=== PATIENT | male | born 1995 | race Caucasian/White ===

== ENCOUNTER 2017-02-25 14:54 | Emergency (ER) | payer OTHER | END 2017-02-25 16:25 | disposition home or self-care (01) | LOC: NAV ERS 14:54 | DX: K64.4 Residual hemorrhoidal skin tags (principal); B37.2 Candidiasis of skin and nail; J45.909 Unspecified asthma, uncomplicated; F32.9 Major depressive disorder, single episode, unspecified; F17.210 Nicotine dependence, cigarettes, uncomplicated | CPT/HCPCS: 82274; 99284 ==

== ENCOUNTER 2017-04-29 16:26 | Emergency (ER) | payer OTHER ==
[2017-04-29] MEDS ORDERED: Acetaminophen 500 MG TAB ONE (16:36)
== END 2017-04-29 16:55 | disposition home or self-care (01) ==
LOC: NAV ERS 16:26
DX: J11.1 Influenza due to unidentified influenza virus with other respiratory manifestations (principal); J45.909 Unspecified asthma, uncomplicated; F32.9 Major depressive disorder, single episode, unspecified; F17.210 Nicotine dependence, cigarettes, uncomplicated
CPT/HCPCS: 99283

== ENCOUNTER 2025-02-13 18:43 | Emergency (ER) | payer OTHER ==
[2025-02-13] MEDS ORDERED: metFORMIN 500 MG TAB ONE (20:13)
== END 2025-02-13 21:09 | disposition home or self-care (01) ==
LOC: NAV ERS 18:43
DX: E86.0 Dehydration (principal); E11.9 Type 2 diabetes mellitus without complications; F17.210 Nicotine dependence, cigarettes, uncomplicated; Z79.84 Long term (current) use of oral hypoglycemic drugs
CPT/HCPCS: 36416; 99283